=== PATIENT | male | born 2000 | race African-American/Black ===

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

== ENCOUNTER 2018-04-20 01:22 | Inpatient (IN) ==
[2018-04-20 04:56] LABS: Baso # (Auto) 0.1 th/mm3 (0.0-0.2); Baso % (Auto) 0.5 % (0.0-2.0); Eos # (Auto) 0.1 th/mm3 (0.0-0.4); Eos % (Auto) 0.6 % (0.0-4.0); Hematocrit 42.7 % (39.0-51.0); Hemoglobin 14.6 gm/dL (13.0-17.0); Lymph # (Auto) 3.8 th/mm3 (1.0-4.8); Mean Corpuscular HGB Conc 34.3 % (32.0-36.0); Mean Corpuscular Hemoglobin 30.7 pg (27.0-34.0); Mean Corpuscular Volume 89.7 fL (80.0-100.0); Mean Platelet Volume 7.7 fL (7.0-11.0); Mono # (Auto) 0.6 th/mm3 (0.0-0.9); Mono % (Auto) 5.9 % (0.0-8.0); Neut # (Auto) 5.8 th/mm3 (1.8-7.7); Platelet Count 300 th/mm3 (150-450); Red Blood Count 4.75 mil/mm3 (4.50-5.90); Red Cell Distribution Width 13.3 % (11.6-17.2); White Blood Count 10.3 th/mm3 (4.0-11.0)
[2018-04-20 05:22] LABS: Anion Gap 8 meq/L (5-15); Blood Urea Nitrogen 13 mg/dL (7-18); Calcium 8.6 mg/dL (8.5-10.1); Chloride 106 meq/L (98-107); Glomerular Filtration Rate Greater Than 89 mL/min (>89); Glucose,Random 68 mg/dL (74-106); Potassium 3.8 meq/L (3.5-5.1); Sodium 144 meq/L (136-145)
--- NOTE | 2018-04-20 05:52 | ED ---
HPI General Chief complaint: Psychiatric Symptoms Stated complaint: Carl Abarca Time Seen by Provider: 04/20/18 04:33 Source: patient Mode of arrival: ambulatory Limitations: no limitations History of Present Illness HPI narrative: 18-year-old male presents emergency department for evaluation of worsening depression. Patient states this has been over the last few days. He has been having suicidal thoughts with no active plan. This does not happen to him in the past. He has never been diagnosed with depression, however he states he did go [facility]. Denies any recent illnesses. He states he has been well. Denies illicit drug use except for marijuana. He has no other symptoms to report. Related Data Home Medications Medication Instructions Recorded Confirmed No Known Home Medications 04/16/18 04/20/18 Allergies Allergy/AdvReac Type Severity Reaction Status Date / Time No Known Allergies Allergy Verified 04/20/18 01:24 Review of Systems ROS: all other systems reviewed are negative [facility] Medical History Medical History Depression (Acute) Surgical History Surgical History History of tonsillectomy and adenoidectomy (Acute) Social History Social History Substance History: Active Abuse Second Hand Smoke Exposure: No Smoking Status: Never smoker How Often Do You Have a Drink Containing Alcohol: Never Recent Travel in [facility] within the Last 8 Weeks: No Recent Out of Country Travel within the Last 8 Weeks: No Substance Abuse Detail Marijuana: Substance Use Status: Active Route Used Substance Abuse: By Mouth and Inhalation Reason for Use: Calm Down and Feels Good Immunization History Tetanus Immunization: >5 Years Hx Influenza Vaccine This Season: No Exam Narrative Exam Narrative: GENERAL: Well-nourished male patient, no acute distress SKIN: Focused skin assessment warm/dry. HEAD: Atraumatic. Normocephalic. EYES: Pupils equal and round. No scleral icterus. No injection or drainage. ENT: No nasal bleeding or discharge. Mucous membranes pink and moist. NECK: Trachea midline. No JVD. CARDIOVASCULAR: Regular rate and rhythm. No murmur appreciated. RESPIRATORY: No accessory muscle use. Clear to auscultation. Breath sounds equal bilaterally. GASTROINTESTINAL: Abdomen soft, non-tender, nondistended. Hepatic and splenic margins not palpable. MUSCULOSKELETAL: No obvious deformities. No clubbing. No cyanosis. No edema. NEUROLOGICAL: Awake and alert. No obvious cranial nerve deficits. Motor grossly within normal limits. Normal speech. Course Initial Documented Vital Signs Temperature 98.7 F 04/20/18 01:24 Pulse Rate 97 H 04/20/18 01:24 Respiratory Rate 18 04/20/18 01:24 Blood Pressure 163/95 H 04/20/18 01:24 Pulse Oximetry 98 04/20/18 01:24 Last Documented Vital Signs Temperature 98.7 F 04/20/18 01:24 Pulse Rate 97 H 04/20/18 01:24 Respiratory Rate 18 04/20/18 05:00 Blood Pressure 163/95 H 04/20/18 01:24 Pulse Oximetry 98 04/20/18 01:24 Medical Decision Making JEAN MARIE Attestation JEAN MARIE supervised visit: Yes MDM Narrative Medical decision making narrative: 18-year-old male presents emergency department voluntarily for psychiatric evaluation. Patient appears without distress. Vital signs are stable. Lab work are without acute concern. Patient is medically cleared to undergo psychiatric screening for further evaluation and disposition. Mental health screening discussed with the patient. Psychiatric screen ordered. Medical Screen Exam Complete: Yes Emergency Medical Condition: Yes Differential Diagnosis Differential Diagnosis: Mood disorder versus personality disorder versus adjustment reaction disorder Lab Data Lab results reviewed: Yes I reviewed the patient's lab results. Result diagrams: 04/20/18 04:40 04/20/18 04:40 Lab Results 04/20/18 04/20/18 Range/Units 04:40 04:40 WBC 10.3 (4.0-11.0) th/mm3 RBC 4.75 (4.50-5.90) mil/mm3 Hgb 14.6 (13.0-17.0) gm/dL Hct 42.7 (39.0-51.0) % MCV 89.7 (80.0-100.0) fL MCH 30.7 (27.0-34.0) pg MCHC 34.3 (32.0-36.0) % RDW 13.3 (11.6-17.2) % Plt Count 300 (150-450) th/mm3 MPV 7.7 (7.0-11.0) fL Neut % (Auto) 56.0 (16.0-70.0) % Lymph % (Auto) 37.0 (9.0-44.0) % [place] % (Auto) 5.9 (0.0-8.0) % Eos % (Auto) 0.6 (0.0-4.0) % Baso % (Auto) 0.5 (0.0-2.0) % Neut # (Auto) 5.8 (1.8-7.7) th/mm3 Lymph # (Auto) 3.8 (1.0-4.8) th/mm3 [place] # (Auto) 0.6 (0.0-0.9) th/mm3 Eos # (Auto) 0.1 (0.0-0.4) th/mm3 Baso # (Auto) 0.1 (0.0-0.2) th/mm3 WBC Differential . Differential Comment Auto diff final Sodium 144 (136-145) meq/L Potassium 3.8 (3.5-5.1) meq/L Chloride 106 (98-107) meq/L Carbon Dioxide 30.0 (21.0-32.0) meq/L Anion Gap 8 (5-15) meq/L BUN 13 (7-18) mg/dL Creatinine 1.16 (0.60-1.30) mg/dL Estimated GFR Greater than 89 (>89) mL/min Random Glucose 68 L (74-106) mg/dL Calcium 8.6 (8.5-10.1) mg/dL TSH 2.430 (0.358-3.740) uIU/mL Serum Alcohol Less than 3 (0-5) mg/dL Discharge Plan Discharge Disposition Patient Disposition: 30 Still Patient Discharge Condition Condition: Stable Discharge Details Diagnosis: Depression Physicians Team ED Provider: Kika Cash ED Midlevel Provider: Shahida Urbina Primary Care Provider: Primary Care Mariana Ortiz Rxs /Orders / Referrals /Forms Prescriptions: No Action No Known Home Medications RF: 0 Discharge Interventions Interventions: Vital Signs Last Done: 04/20/18 05:00 Status ED Status: With Doctor
[2018-04-20] MEDS ORDERED: Aluminum/Magnesium/Simethacone Susp 30 ML UDC PO PRN (10:32)
[2018-04-20] MEDS ORDERED: Acetaminophen 325 MG Tablet PO PRN (10:32)
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
[2018-04-20] MEDS: Sertraline 50 MG Tablet PO SCH (10:59)
[2018-04-20 16:26] LABS: Albumin 4.4 g/dL (3.4-5.0)
[2018-04-20 16:28] LABS: Total Protein 8.3 g/dL (6.4-8.2)
[2018-04-21] MEDS: Sertraline 50 MG Tablet PO SCH (08:38)
[2018-04-21 10:35] LABS: Anion Gap 8 meq/L (5-15); Blood Urea Nitrogen 11 mg/dL (7-18); Calcium 8.8 mg/dL (8.5-10.1); Carbon Dioxide 29.4 meq/L (21.0-32.0); Chloride 105 meq/L (98-107); Cholesterol 93 mg/dL (120-200); Glomerular Filtration Rate Greater Than 89 mL/min (>89); Glucose,Random 89 mg/dL (74-106); Potassium 3.6 meq/L (3.5-5.1); Sodium 142 meq/L (136-145)
[2018-04-21 10:39] LABS: Chol/HDL Ratio 3.14 Ratio; HDL Cholesterol 29.6 mg/dL (40.0-60.0); LDL Cholesterol,Calculated 47 mg/dL (0-99); Triglycerides 80 mg/dL (42-150)
[2018-04-21 12:58] LABS: Hemoglobin A1c 5.2 % (4.3-6.0)
--- NOTE | 2018-04-21 14:35 | P.PNPSY ---
Subjective Chief Complaint: Depression Remarks: Patient seen and mack with floor staff, patient initially admitted by Dr. Santiago Salas who did the H&P. Patient was admitted on a voluntary basis. I have done the initial psychiatric template orders and med reconciliation. Patient seen by me today he is alert oriented calm cooperative -[place] male. Long history of mental health issues. Became officially homeless in the past 2 days [place] He is vague about continued suicidal ideation. We did discuss placement issues with him he has a history of marijuana abuse. He may qualify for 1 of our sober living facilities such as [facility] or [facility] because of his with him with her counselors otherwise for now continue medications no change Review of Systems All other systems reviewed negative except as stated in HPI Mental Status Examination Appearance: Appropriate Consciousness: Alert Orientation: x4 Motor Activity: Other (No motor abnormalities noted) Speech: Unremarkable Language: Adequate Fund of Knowledge: Adequate Attention and Concentration: Adequate Memory: Unremarkable (Grossly intact on clinical exam) Mood: Other (Reports depressed) Affect: Appropriate, Euthymic, Other (Inconsistent with stated mood) Thought Process & Associations: Intact, Logical, Linear Thought Content: Appropriate Hallucination Type: None Delusion Type: None Suicidal Ideation: Yes Suicidal Plan: Yes (Run into traffic) Suicidal Intention: No (Contracts for safety on the inpatient unit) Homicidal Ideation: No Homicidal Plan: No Homicidal Intention: No Insight: Fair Judgment: Impulsive Assessment and Plan - Assessment (1) Adjustment disorder with depressed mood Code(s): F43.21 - Adjustment disorder with depressed mood Status: Acute - Plan Plan: Patient continues depressed with vague suicidal ideation. Continue treatment Justification for Continued Inpatient Stay: At this time patient would decompensate a place to a lower level of care Discharge Planning: To be determined we will continue exploring possible sober living facilities Request Healthcare Surrogate/Guardian Advocate?: No
[2018-04-21] MEDS ORDERED: Aluminum/Magnesium/Simethacone Susp 30 ML UDC PO PRN (15:00)
--- NOTE | 2018-04-21 16:00 | P.TTN ---
- Patient Problems Problems: 1. Discharge planning 2. Medication compliance 3. Knowledge deficit 4. Lack of coping skills - Progress Toward Goals Provider Present: Dr. Vel Bower Provider Input: New admission Psychiatric Counselors Present: Dunia Parmar LCSW, Esau Molina Jr., [facility], Claire Umanzor, [facility] Psychiatric Therapist Input: new admission yesterday, will see for Bio today. Depressed mood Group Spec/RT/OT/KESSLER Present: AMY Murray (Hasn't attended the group activities as yet, encouragement will be given) - Documentation Teaching Recipient: Patient
[2018-04-21] MEDS: traZODone 50 MG Tablet PO PRN (21:22)
[2018-04-22] MEDS: Sertraline 50 MG Tablet PO SCH (09:29)
--- NOTE | 2018-04-22 16:11 | P.PNPSY ---
Subjective Chief Complaint: Depression Remarks: Patient seen in day room with nurse Louis, chart reviewed, patient compliant medication. Patient showing some slight increased range and intensity his affect. His eye contact is improved. He states she is having some vague intermittent suicidal thoughts but overall doing somewhat better. He still concerned about his homelessness continues willing to look at sober living facilities. Review of Systems All other systems reviewed negative except as stated in HPI Mental Status Examination Appearance: Appropriate Consciousness: Alert Orientation: x4 Motor Activity: Other (No motor abnormalities noted) Speech: Unremarkable Language: Adequate Fund of Knowledge: Adequate Attention and Concentration: Adequate Memory: Unremarkable (Grossly intact on clinical exam) Mood: Other (Reports depressed) Affect: Appropriate, Euthymic, Other (Inconsistent with stated mood) Thought Process & Associations: Intact, Logical, Linear Thought Content: Appropriate Hallucination Type: None Delusion Type: None Suicidal Ideation: Yes Suicidal Plan: Yes (Run into traffic) Suicidal Intention: No (Contracts for safety on the inpatient unit) Homicidal Ideation: No Homicidal Plan: No Homicidal Intention: No Insight: Fair Judgment: Impulsive Assessment and Plan - Assessment (1) Adjustment disorder with depressed mood Code(s): F43.21 - Adjustment disorder with depressed mood Status: Acute - Plan Plan: Patient continues depressed though his mood is slightly improved, compliant medications, still occasional suicidal ideation. He will continue to look at sober living facilities once information is given to him Justification for Continued Inpatient Stay: At this time patient would decompensate a place to a lower level of care Discharge Planning: To be determined Request Healthcare Surrogate/Guardian Advocate?: No
[2018-04-22] MEDS: traZODone 50 MG Tablet PO PRN (21:27)
[2018-04-23] MEDS: Sertraline 50 MG Tablet PO SCH (09:17)
--- NOTE | 2018-04-23 10:44 | P.PNPSY ---
Subjective Chief Complaint: Depression Remarks: Reviewed electronic medical records and discussed case with staff. Follow-up was conducted in the exam room with ARELY Lyons present. Staff reports that patient has been med compliant and there have been no behavioral issues. At this time he is denying any suicidal ideation. His mood is good and his affect is euthymic. He does report he was a little depressed earlier but states that he is "slowly getting out of it". Seems to be future oriented stating that he hopes someday become a patient transport officer. Is pleasant and appropriate throughout the follow-up. Mental Status Examination Appearance: Appropriate Consciousness: Alert Orientation: x4 Motor Activity: Other (No motor abnormalities noted) Speech: Unremarkable Language: Adequate Fund of Knowledge: Adequate Attention and Concentration: Adequate Memory: Unremarkable (Grossly intact on clinical exam) Mood: Other (Reports depressed) Affect: Appropriate, Euthymic, Other (Inconsistent with stated mood) Thought Process & Associations: Intact, Logical, Linear Thought Content: Appropriate Hallucination Type: None Delusion Type: None Suicidal Ideation: Yes Suicidal Plan: Yes (Run into traffic) Suicidal Intention: No (Contracts for safety on the inpatient unit) Homicidal Ideation: No Homicidal Plan: No Homicidal Intention: No Insight: Fair Judgment: Impulsive Assessment and Plan - Plan Plan: Continue with current treatment plan. Continue to work on discharge plan of sober living facility. Justification for Continued Inpatient Stay: Moving this patient to a less restrictive environment would likely result in decompensation. Request Healthcare Surrogate/Guardian Advocate?: No
[2018-04-23] MEDS: traZODone 50 MG Tablet PO PRN (20:53)
[2018-04-24] MEDS: Sertraline 50 MG Tablet PO SCH (09:13)
--- NOTE | 2018-04-24 17:26 | P.PNPSY ---
Subjective Chief Complaint: Depression Remarks: Reviewed electronic medical records and discussed case with staff. Follow-up was conducted in the milieu. Patient was observed eating his dinner. He states that he had a good day but reports that he feels "sad". However, he was observed laughing and interacting appropriately with the other patients. I advised him that he needs to start working on a sober living facility for discharge planning. Mental Status Examination Appearance: Appropriate Consciousness: Alert Orientation: x4 Motor Activity: Other (No motor abnormalities noted) Speech: Unremarkable Language: Adequate Fund of Knowledge: Adequate Attention and Concentration: Adequate Memory: Unremarkable (Grossly intact on clinical exam) Mood: Other (Reports depressed) Affect: Appropriate, Euthymic, Other (Inconsistent with stated mood) Thought Process & Associations: Intact, Logical, Linear Thought Content: Appropriate Hallucination Type: None Delusion Type: None Suicidal Ideation: Yes Suicidal Plan: Yes (Run into traffic) Suicidal Intention: No (Contracts for safety on the inpatient unit) Homicidal Ideation: No Homicidal Plan: No Homicidal Intention: No Insight: Fair Judgment: Impulsive Assessment and Plan - Assessment (1) Adjustment disorder with depressed mood Code(s): F43.21 - Adjustment disorder with depressed mood Status: Acute - Plan Plan: Continue with current treatment plan. Patient should start contacting sober living facilities as his discharge should be occurring soon. Justification for Continued Inpatient Stay: Moving this patient to a less restrictive environment would likely result in decompensation. Request Healthcare Surrogate/Guardian Advocate?: No
[2018-04-25] MEDS: Sertraline 50 MG Tablet PO SCH (09:32)
--- NOTE | 2018-04-25 15:40 | P.PNPSY ---
Subjective Chief Complaint: Depression Remarks: On psychiatric evaluation today I find the patient in the recreational area. He is calm, cooperative, pleasant. Reports that he continues to be depressed, but he is doing much better now. He reports a sense of anhedonia, hopelessness , helplessness, but more future oriented at this moment, he denies suicidal and homicidal ideation at this moment. The patient is still having difficulty sleeping at night. Poor appetite, he is oriented 3, compliant with medications , no significant side effects. Mental Status Examination Appearance: Appropriate Consciousness: Alert Orientation: x4 Motor Activity: Other (No motor abnormalities noted) Speech: Unremarkable Language: Adequate Fund of Knowledge: Adequate Attention and Concentration: Adequate Memory: Unremarkable (Grossly intact on clinical exam) Mood: Other (Reports depressed) Affect: Appropriate, Euthymic, Other (Inconsistent with stated mood) Thought Process & Associations: Intact, Logical, Linear Thought Content: Appropriate Hallucination Type: None Delusion Type: None Suicidal Ideation: Yes Suicidal Plan: Yes (Run into traffic) Suicidal Intention: No (Contracts for safety on the inpatient unit) Homicidal Ideation: No Homicidal Plan: No Homicidal Intention: No Insight: Fair Judgment: Impulsive Assessment and Plan - Assessment (1) Adjustment disorder with depressed mood Code(s): F43.21 - Adjustment disorder with depressed mood Status: Acute - Plan Plan: I will increase the Zoloft 100 mg for depression. Brief supportive psychotherapy provided. Justification for Continued Inpatient Stay: Patient will continue psychiatric hospitalization for stabilization. Request Healthcare Surrogate/Guardian Advocate?: No
[2018-04-26] MEDS: Sertraline 50 MG Tablet PO SCH (09:27)
--- NOTE | 2018-04-26 13:52 | P.PNPSY ---
Subjective Chief Complaint: Depression Remarks: Pt seen and discussed with staff. He was admitted for depression and SI. He reports that he slept well last night and he did shower today. He has been compliant with medications and is tolerating without side effects. He remains depressed but he denies SI today. Mental Status Examination Appearance: Appropriate Consciousness: Alert Orientation: x4 Motor Activity: Other (No motor abnormalities noted) Speech: Unremarkable Language: Adequate Fund of Knowledge: Adequate Attention and Concentration: Adequate Memory: Unremarkable (Grossly intact on clinical exam) Mood: Sad Affect: Sad, Other (constricted) Thought Process & Associations: Intact, Linear Thought Content: Appropriate Hallucination Type: None Delusion Type: None Suicidal Ideation: No Suicidal Plan: No Suicidal Intention: No Homicidal Ideation: No Homicidal Plan: No Homicidal Intention: No Insight: Fair Judgment: Impulsive Assessment and Plan - Assessment (1) Adjustment disorder with depressed mood Code(s): F43.21 - Adjustment disorder with depressed mood Status: Acute - Plan Plan: Continue current tx plan Justification for Continued Inpatient Stay: risk of decompensation Request Healthcare Surrogate/Guardian Advocate?: No
[2018-04-27] MEDS: Sertraline 50 MG Tablet PO SCH (08:39)
--- NOTE | 2018-04-27 11:40 | P.PNPSY ---
Subjective Chief Complaint: Depression Remarks: Medical record reviewed and discussed with nursing staff. ARELY Don and I met with patient in the day room. He is calm and watching television. He denies SI/HI. States that his mood is good. States that he is sleeping and eating well. Expresses no concerns. Review of Systems All other systems reviewed negative except as stated in HPI Mental Status Examination Appearance: Appropriate Consciousness: Alert Orientation: x4 Motor Activity: Other (No motor abnormalities noted) Speech: Unremarkable Language: Adequate Fund of Knowledge: Adequate Attention and Concentration: Adequate Memory: Unremarkable (Grossly intact on clinical exam) Mood: Sad Affect: Sad, Other (constricted) Thought Process & Associations: Intact, Linear Thought Content: Appropriate Hallucination Type: None Delusion Type: None Suicidal Ideation: No Suicidal Plan: No Suicidal Intention: No Homicidal Ideation: No Homicidal Plan: No Homicidal Intention: No Insight: Fair Judgment: Impulsive Assessment and Plan - Assessment (1) Depression Code(s): F32.9 - Major depressive disorder, single episode, unspecified Status : Acute - Plan Plan: Continue current tx plan Justification for Continued Inpatient Stay: Moving patient to a less restrictive environment may result in his decompensation. Request Healthcare Surrogate/Guardian Advocate?: No (1) Depression Qualifiers: Depression Type: unspecified Qualified Code(s): F32.9 - Major depressive disorder, single episode, unspecified
[2018-04-27] MEDS: traZODone 50 MG Tablet PO PRN (21:53)
[2018-04-28 05:26] VITALS: BP 121/68; PULSE 76; RESP 17; TEMP 97.6; O2SAT 98
[2018-04-28] MEDS: Sertraline 50 MG Tablet PO SCH (08:44)
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
== END 2018-04-28 15:10 | disposition home or self-care (01) ==
LOC: NEPD 01:22 → NEDA 10:31 → H260 12:04
PROVIDERS: ADMIT Psychiatry & Neurology Psychiatry; ATTEND Psychiatry & Neurology Psychiatry